=== PATIENT | male | born 1955 | race Caucasian/White ===

== ENCOUNTER 2023-09-14 18:23 | Emergency (ER) | payer MEDICARE, BC ==
[2023-09-14 19:07] LABS: BASOPHILS PERCENT AUTO 0.2 % (0.1-1.3); EOSINOPHILS ABSOLUTE AUTO 0.03 K/uL (0.00-0.40); EOSINOPHILS PERCENT AUTO 0.5 % (0.0-5.4); HEMATOCRIT 36.2 % (38.4-49.7); HEMOGLOBIN 13.1 g/dL (12.9-16.9); IMMATURE GRAN PERCENT AUTO 0.4 % (0.0-0.7); LYMPHOCYTES ABSOLUTE AUTO 1.86 K/uL (0.8-3.3); LYMPHOCYTES PERCENT AUTO 33.8 % (11.4-47.7); MEAN CORPUSCULAR HEMOGLOBIN 32.7 pg (31.6-35.5); MEAN CORPUSCULAR HGB CONC 36.2 g/dL (31.6-35.5); MEAN CORPUSCULAR VOLUME 90.3 fL (81.4-99.0); MONOCYTES ABSOLUTE AUTO 0.45 K/uL (0.20-0.90); MONOCYTES PERCENT AUTO 8.2 % (3.3-12.6); NEUTROPHILS ABSOLUTE AUTO 3.14 K/uL (1.0-7.6); NEUTROPHILS PERCENT AUTO 56.9 % (40.0-78.1); PLATELET COUNT,PLT 164 K/uL (130-375); RED BLOOD CELL COUNT 4.01 M/uL (4.14-5.76); WHITE BLOOD CELL COUNT,WBC 5.5 K/uL (3.2-11.0)
[2023-09-14 19:25] LABS: BASOPHILS ABSOLUTE AUTO 0.01 K/uL (0.00-0.10); IMMATURE GRAN ABSOLUTE AUTO 0.02 K/uL (0.00-0.23)
[2023-09-14 19:28] LABS: A/G RATIO 0.9 (1.2-2.2); ALANINE AMINOTRANSFERASE,ALT 25 U/L (12-78); ALBUMIN 3.2 g/dL (3.4-5.0); ALKALINE PHOSPHATASE 70 U/L (46-116); ASPARTATE AMNIOTRANSFERASE,AST 14 U/L (15-37); BILIRUBIN TOTAL 0.5 mg/dL (0.2-1.0); BLOOD UREA NITROGEN,BUN 19 mg/dL (7-18); CALCIUM 9.1 mg/dL (8.5-10.1); CARBON DIOXIDE,CO2 27 mmol/L (21-32); CHLORIDE,CL 101 mmol/L (100-108); CREATININE 1.3 mg/dL (0.8-1.3); EST CRCL DRUG DOSING (CG) 55.14 mL/min; ESTIMATED GFR 60 mL/min (>60); PROTEIN TOTAL,TP 6.6 g/dL (6.4-8.2); SODIUM,NA 137 mmol/L (140-148)
[2023-09-14 19:29] LABS: GLUCOSE RANDOM 424 mg/dL (74-106)
[2023-09-14] MEDS ORDERED: Glucagon,Human Recombinant 1 MG Vial IM PRN (20:12)
[2023-09-14] MEDS ORDERED: 50% Dextrose in Water 50 ML Syringe IVPUSH PRN (20:12)
[2023-09-14] MEDS: Insulin Regular, Human 100 Units/ML 3 ML Vial SUBCUT ONE (20:33)
== END 2023-09-14 20:42 | disposition home or self-care (01) ==
LOC: JP.ED 18:23
DX: M79.672 Pain in left foot (principal); I10 Essential (primary) hypertension; I25.2 Old myocardial infarction; K21.9 Gastro-esophageal reflux disease without esophagitis; E78.00 Pure hypercholesterolemia, unspecified; E11.9 Type 2 diabetes mellitus without complications; Z79.4 Long term (current) use of insulin; Z79.899 Other long term (current) drug therapy
CPT/HCPCS: 36415; 80053; 85025; 99283; 99284; J1815-GY

== ENCOUNTER 2024-09-21 12:16 | Emergency (ER) | payer MEDICARE, BC ==
[2024-09-21] MEDS ORDERED: Bacitracin Oint 1 GM U/D Packet TOP ONE (13:04)
== END 2024-09-21 13:49 | disposition home or self-care (01) ==
LOC: JP.ED 12:16
DX: S81.801A Unspecified open wound, right lower leg, initial encounter (principal); E11.9 Type 2 diabetes mellitus without complications; I10 Essential (primary) hypertension; I25.2 Old myocardial infarction; K21.9 Gastro-esophageal reflux disease without esophagitis; E78.00 Pure hypercholesterolemia, unspecified; Z79.4 Long term (current) use of insulin; Z79.899 Other long term (current) drug therapy; Z87.891 Personal history of nicotine dependence; X58.XXXA Exposure to other specified factors, initial encounter
CPT/HCPCS: 99283

== ENCOUNTER 2024-12-03 12:08 | Emergency (ER) | payer MEDICARE, BC | END 2024-12-03 13:11 | disposition home or self-care (01) | LOC: JP.ED 12:08 | DX: L03.116 Cellulitis of left lower limb (principal); I10 Essential (primary) hypertension; I25.2 Old myocardial infarction; E78.00 Pure hypercholesterolemia, unspecified; E11.40 Type 2 diabetes mellitus with diabetic neuropathy, unspecified; M19.90 Unspecified osteoarthritis, unspecified site; Z79.899 Other long term (current) drug therapy; Z79.4 Long term (current) use of insulin | CPT/HCPCS: 99283 ==